=== PATIENT | male | born 1960 | race Caucasian/White ===

== ENCOUNTER 2024-06-06 13:39 | Emergency (ER) | payer MEDICAID, MEDICARE ==
[2024-06-06 14:24] LABS: APPEARANCE,URINE CLOUDY (CLEAR); BILIRUBIN,URINE NEGATIVE (NEGATIVE); COLOR,URINE YELLOW (YELLOW); GLUCOSE,URINE NEGATIVE (NEGATIVE); KETONES,URINE NEGATIVE (NEGATIVE); LEUKOCYTE ESTERASE,URINE SMALL (NEGATIVE); NITRITE,URINE POSITIVE (NEGATIVE); OCCULT BLOOD,URINE TRACE-LYSED (NEGATIVE); PH,URINE 6.5 (5.0-8.0); PROTEIN,URINE NEGATIVE (NEGATIVE)
[2024-06-06 14:38] LABS: BACTERIA,URINE MODERATE /HPF (NOT SEEN); MUCUS,URINE FEW /LPF (NOT SEEN); SQUAMOUS EPITHELIAL CELLS,UR NOT SEEN /HPF (NOT SEEN); WBC,URINE 20-30 /HPF (NOT SEEN)
== END 2024-06-06 14:46 | disposition home or self-care (01) ==
LOC: VM.ED 13:39
DX: N39.0 Urinary tract infection, site not specified (principal); F17.210 Nicotine dependence, cigarettes, uncomplicated
CPT/HCPCS: 81001; 87086; 87088; 87147; 99283; 99284

== ENCOUNTER 2024-10-04 15:09 | Emergency (ER) | payer MEDICAID, MEDICARE ==
[2024-10-04 15:35] LABS: BASOPHILS PERCENT AUTO 0.4 % (0.2-1.2); EOSINOPHILS ABSOLUTE AUTO 0.3 x10^3/uL (0.0-0.5); EOSINOPHILS PERCENT AUTO 6.5 % (0.0-4.0); HEMOGLOBIN 13.4 g/dL (14.0-18.0); LYMPHOCYTES ABSOLUTE AUTO 0.6 x10^3/uL (1.0-4.8); LYMPHOCYTES PERCENT AUTO 12.6 % (25.0-50.0); MEAN CORPUSCULAR HEMOGLOBIN 33.9 pg (26.0-32.0); MEAN CORPUSCULAR HGB CONC 34.4 g/dL (32.0-36.0); MEAN CORPUSCULAR VOLUME 98.7 fL (78.0-93.0); MONOCYTES ABSOLUTE AUTO 0.6 x10^3/uL (0.0-0.8); MONOCYTES PERCENT AUTO 12.8 % (2.0-11.0); NEUTROPHILS ABSOLUTE AUTO 3.1 x10^3/uL (1.8-7.7); NEUTROPHILS PERCENT AUTO 67.7 % (50.0-80.0); PLATELET COUNT,PLT 222 x10^3/uL (130-400); RED BLOOD CELL COUNT 3.95 x10^6/uL (4.5-6.0); WHITE BLOOD CELL COUNT,WBC 4.6 x10^3/uL (4.0-10.0)
[2024-10-04] MEDS: Clindamycin Phosphate in D5W 600 MG in Premix Bag 1 BAG IV ONE (15:39)
[2024-10-04] MEDS: Acetaminophen/HYDROcodone 325-5 MG Tab PO ONE (15:43)
[2024-10-04 15:54] LABS: ALANINE AMINOTRANSFERASE,ALT 19 U/L (16-63); ALBUMIN 2.8 g/dL (3.4-5.0); ALKALINE PHOSPHATASE 133 U/L (46-116); ASPARTATE AMNIOTRANSFERASE,AST 19 U/L (15-37); BILIRUBIN TOTAL 0.6 mg/dL (0.2-1.0); BLOOD UREA NITROGEN,BUN 15 mg/dL (7-18); CALCIUM 8.8 mg/dL (8.5-10.1); CARBON DIOXIDE,CO2 28 mmol/L (21-32); CHLORIDE,CL 102 mmol/L (98-107); CREATININE 0.8 mg/dL (0.70-1.30); GLUCOSE RANDOM 110 mg/dL (70-99); POTASSIUM,K 3.2 mmol/L (3.5-5.1); PROTEIN TOTAL,TP 6.8 g/dL (6.4-8.2); SODIUM,NA 136 mmol/L (136-145)
[2024-10-04 15:55] LABS: ANION GAP 9.2 mmol/L (5-15); ESTIMATED GFR 98 mL/min (>=60)
== END 2024-10-04 16:18 | disposition home or self-care (01) ==
LOC: VM.ED 15:09
DX: L03.116 Cellulitis of left lower limb (principal)
CPT/HCPCS: 80053; 83605; 85025; 96365; 99283; 99283-25; A9270-GY; J0736